=== PATIENT | male | born 1995 | race Caucasian/White ===

== ENCOUNTER 2018-01-08 16:17 | Emergency (ER) | payer BC ==
[~2018-01-08] VITALS: Ht 175.3 cm; Wt 79.0 kg
[2018-01-08 16:20] VITALS: TEMP 36.5; Ht 175.3 cm; Wt 79.0 kg
--- NOTE | 2018-01-08 16:26 | EMERGENCY ROOM VISIT NOTE ---
History Report prepared by Zak: Soham Palacio Under the Supervision of: Dr. Gadiel Smith M.D. First contact with patient: 16:19 Chief Complaint: ALCOHOL OVERDOSE Stated Complaint: ETOH, FALL History of Present Illness The patient is a 22 year old male who presents to the Emergency Room via EMS with a persistent alcohol overdose this afternoon. Per EMS, the patient had been drinking alcohol today, and was found standing on a garage 10 to 12 feet high, and jumped off, sticking the landing onto a table below, but then fell off of that and striking his head. Any loss of consciousness is unknown, but the patient states that he remembers the whole event. The patient denies any pain, including any head, neck, or abdominal pain. He says that he has no notable past medical history. He says that his parents do not know that he is here, but he does not want them called. History limited secondary to patient's intoxication. Source of History: patient, EMS History Limited By: intoxication Onset: This afternoon Position: other (global) Symptom Intensity: jumped off 10 to 12 feet high garage Quality: other (alcohol overdose) Timing: other (persistent) Associated Symptoms: No headache, No neck pain, No abdominal pain Note: LOC is unknown. Review of Systems ROS limited secondary to patient's intoxication. Past Medical & Surgical Medical Problems: (1) No chronic diseases present Family History No pertinent family history Social History Alcohol Use: occasionally Housing Status: lives with roommate Occupation Status: [employer] student Current/Historical Medications No Active Prescriptions or Reported Meds Allergies Coded Allergies: No Known Allergies (Unverified , 01/08/18) Physical Exam Vital Signs Date Time Temp Pulse Resp B/P (MAP) Pulse Ox O2 Delivery O2 Flow Rate FiO2 01/08/18 18:28 62 12 108/61 99 01/08/18 18:03 62 12 108/61 99 Room Air 01/08/18 17:45 59 115/67 98 Room Air 01/08/18 17:26 64 107/74 97 Room Air 01/08/18 17:14 61 112/69 97 Room Air 01/08/18 16:31 69 01/08/18 16:30 96 Room Air 01/08/18 16:20 36.5 98 106/82 97 Room Air Physical Exam GENERAL: Awake, alert, intoxicated-appearing, cervical collar in place HENT: Hematoma to the posterior part of the head. No evidence of laceration. Oropharynx unremarkable. EYES: Normal conjunctiva. Sclera non-icteric. NECK: Supple. No nuchal rigidity. FROM. No JVD. RESPIRATORY: Clear to auscultation. CARDIAC: Regular rate, normal rhythm. Extremities warm and well perfused. Pulses equal. ABDOMEN: Soft, non-distended. No tenderness to palpation. No rebound or guarding. No masses. RECTAL: Deferred. MUSCULOSKELETAL: Chest examination reveals no tenderness. The back is symmetrical on inspection without obvious abnormality. There is no CVA tenderness to palpation. No joint edema. LOWER EXTREMITIES: Calves are equal size bilaterally and non-tender. No edema. No discoloration. NEURO: Normal sensorium. No sensory or motor deficits noted. SKIN: No rash or jaundice noted. Medical Decision & Procedures ER Provider Diagnostic Interpretation: CT results as stated below per my review and radiologist interpretation: HEAD WITHOUT CONTRAST (CT) CLINICAL HISTORY: 22 years-old Male presenting with Pt c/o fall, +LOC. TECHNIQUE: Multidetector CT imaging of the head was performed without the use of intravenous contrast. IV contrast: None. A dose lowering technique was used consistent with the principles of ALARA (as low as reasonably achievable). COMPARISON: None. CT DOSE (mGy.cm): The estimated cumulative dose is 1044.53 mGy.cm. FINDINGS: Automation Test Engineer topogram: Unremarkable. Ventricles and sulci normal in size. Focal lenticular hyperdense collection consistent with acute hemorrhage along the median right frontal lobe with resulting subjacent effacement. The configuration favors epidural hematoma, which measures 7 mm in thickness. There may be minimal acute hemorrhage along the anterior falx ingesting a trace subdural component. The underlying brain parenchyma in the right frontal lobe does not demonstrate convincing evidence for contusion. However, subarachnoid hemorrhage is noted in the right frontal region both immediately subjacent to the presumed epidural hematoma as well as laterally and inferiorly in the right frontal region. No midline shift. Acute nondisplaced fracture of the frontal bone, which does not traverse posterior to the coronal suture but may result in slight diastases of the anterior most portion of the sagittal suture. The fracture plane extends anteriorly violating the superior right orbital rim and right anterior cranial fossa. Extensive aerated secretions in the maxillary sinuses. The right orbit appears spared. Small subgaleal hematoma also noted over the skull fracture. IMPRESSION: 1. Nondisplaced frontal bone fracture with extension into the anterior cranial fossa. 2. Associated small epidural hematoma and subarachnoid hemorrhage in the right frontal region. Possible trace subdural hematoma along the anterior falx. 3. No convincing evidence for a subjacent brain contusion. 4. Small subgaleal hematoma. 5. Partial opacification of the maxillary sinuses likely due to blood products. These findings were discussed with Dr. Smith by Dr. William on 01/08/2018 4:54 PM. Electronically signed by: Andrea William M.D. 01/08/2018 4:56 PM Dictated Date/Time: 01/08/2018 4:47 PM CERVICAL SPINE W/O CLINICAL HISTORY: 22 years-old Male presenting with Pt c/o Fall, +LOC. TECHNIQUE: Multidetector CT of the cervical spine was performed without the use of intravenous contrast. IV contrast: None. A dose lowering technique was used consistent with the principles of ALARA (as low as reasonably achievable). COMPARISON: None. CT DOSE (mGy.cm): The estimated cumulative dose is 1044.[address] head. FINDINGS: Automation Test Engineer topogram: Unremarkable. Normal cervical lordosis. Vertebral bodies maintain normal height and alignment. Intervertebral discs heights preserved. No acute fracture or subluxation. No osseous spinal canal or neural foraminal narrowing. Unfused secondary ossification center noted at the dorsal aspect of the spinous process of C7. Partial opacification of maxillary sinuses. Lung apices clear. Paraspinal soft tissues within normal limits allowing for noncontrast technique. IMPRESSION: No acute osseous injury of the cervical spine. Electronically signed by: Andrea William M.D. 01/08/2018 4:58 PM Dictated Date/Time: 01/08/2018 4:57 PM THORACIC SPINE WITHOUT CLINICAL HISTORY: 22 years-old Male presenting with Pt ten foot fall. TECHNIQUE: Multidetector CT of the thoracic spine was performed without the use of intravenous contrast. IV contrast: None. A dose lowering technique was used consistent with the principles of ALARA (as low as reasonably achievable). COMPARISON: None. CT DOSE (mGy.cm): The estimated cumulative dose is 578.41. FINDINGS: Automation Test Engineer topogram: Unremarkable. Normal thoracic kyphosis. No acute fracture or subluxation. Vertebral bodies maintain normal height and alignment. Intervertebral disc spaces maintained. No osseous neural foraminal or spinal canal narrowing. IMPRESSION: No acute osseous injury of the thoracic spine. Electronically signed by: Andrea William M.D. 01/08/2018 5:15 PM Dictated Date/Time: 01/08/2018 5:13 PM CLINICAL HISTORY: 22 years-old Male presenting with Pt c/o 10 foot fall. TECHNIQUE: Multidetector CT of the lumbar spine was performed without the use of intravenous contrast. IV contrast: None. A dose lowering technique was used consistent with the principles of ALARA (as low as reasonably achievable). COMPARISON: None. CT DOSE (mGy.cm): The estimated cumulative dose is 578.41. FINDINGS: Automation Test Engineer topogram: Unremarkable. Normal lumbar lordosis. Vertebral bodies maintain normal height and alignment. Intervertebral discs maintained. No acute fracture or subluxation. No osseous neural foraminal or spinal canal narrowing. IMPRESSION: No acute osseous injury lumbar spine. Electronically signed by: Andrea William M.D. 01/08/2018 5:17 PM Dictated Date/Time: 01/08/2018 5:[address] (CHEST) THORAX WITH CLINICAL HISTORY: 22 years-old Male presenting with Pt c/o head trauma. TECHNIQUE: Multidetector CT imaging of the chest was performed after the administration of intravenous contrast. IV contrast: 116 mL of Optiray 320. A dose lowering technique was used consistent with the principles of ALARA (as low as reasonably achievable). COMPARISON: None. CT DOSE (mGy.cm): The estimated cumulative dose is 578.41. FINDINGS: Automation Test Engineer topogram: Unremarkable. On soft tissue windows, normal thyroid and thoracic inlet. No axillary, supraclavicular, hilar, or mediastinal lymphadenopathy. Normal aorta. Normal heart size. No pericardial or pleural effusion. Upper abdomen normal. On lung windows, minimal dependent changes likely atelectasis. No other focal nodule or infiltrate. Airways patent. On bone windows, normal osseous structures. IMPRESSION: 1. No acute intrathoracic injury. Electronically signed by: Andrea William M.D. 01/08/2018 5:13 PM Dictated Date/Time: 01/08/2018 5:09 PM ABD/PELVIS IV CONTRAST ONLY CLINICAL HISTORY: 22 years-old Male presenting with Pt c/o abd pain, trauma. TECHNIQUE: Multidetector CT of the abdomen and pelvis was performed after the administration of intravenous contrast. IV contrast: 116 mL of Optiray 320. A dose lowering technique was used consistent with the principles of ALARA (as low as reasonably achievable). COMPARISON: None. CT DOSE (mGy.cm): The estimated cumulative dose is 578.41 mGy.cm. FINDINGS: Automation Test Engineer topogram: Unremarkable. Lung bases: Minimal basilar opacities, likely atelectasis. Normal heart size. No pericardial or pleural effusion. Liver: Normal morphology. No liver lesion. Patent hepatic vasculature. Biliary: No intrahepatic or extrahepatic biliary ductal dilatation. Normal gallbladder. Pancreas: Normal. Spleen: Normal. Adrenal glands: Normal. Kidneys and ureters: Normal. No hydronephrosis. Bladder: Normal. Pelvic organs: Prostate and seminal vesicles normal. Bowel: Normal. No bowel obstruction. Peritoneal cavity: No free fluid or intraperitoneal gas. Lymph nodes: No enlarged lymph nodes in the abdomen or pelvis. Vasculature: Aorta and IVC patent and normal in caliber. Abdominal wall: Normal. Musculoskeletal: Normal. IMPRESSION: 1. No acute intra-abdominal injury. Electronically signed by: Andrea William M.D. 01/08/2018 5:09 PM Dictated Date/Time: 01/08/2018 5:03 PM Laboratory Results 01/08/18 16:36 Red Blood Count 4.68, Mean Corpuscular Volume 85.3, Mean Corpuscular Hemoglobin 30.1, Mean Corpuscular Hemoglobin Concent 35.3, Mean Platelet Volume 9.0, Neutrophils (%) (Auto) 55.8, Lymphocytes (%) (Auto) 35.2, Monocytes (%) (Auto) 7.8, Eosinophils (%) (Auto) 0.3, Basophils (%) (Auto) 0.6, Neutrophils # (Auto) 3.45, Lymphocytes # (Auto) 2.18, Monocytes # (Auto) 0.48, Eosinophils # (Auto) 0.02, Basophils # (Auto) 0.04 01/08/18 16:36 Test 01/08/18 16:36 White Blood Count 6.19 K/uL (4.8-10.8) Red Blood Count 4.68 M/uL (4.7-6.1) Hemoglobin 14.1 g/dL (14.0-18.0) Hematocrit 39.9 % (42-52) Mean Corpuscular Volume 85.3 fL (80-100) Mean Corpuscular Hemoglobin 30.1 pg (25-34) Mean Corpuscular Hemoglobin Concent 35.3 g/dl (32-36) Platelet Count 232 K/uL (130-400) Mean Platelet Volume 9.0 fL (7.4-10.4) Neutrophils (%) (Auto) 55.8 % Lymphocytes (%) (Auto) 35.2 % Monocytes (%) (Auto) 7.8 % Eosinophils (%) (Auto) 0.3 % Basophils (%) (Auto) 0.6 % Neutrophils # (Auto) 3.45 K/uL (1.4-6.5) Lymphocytes # (Auto) 2.18 K/uL (1.2-3.4) Monocytes # (Auto) 0.48 K/uL (0.11-0.59) Eosinophils # (Auto) 0.02 K/uL (0-0.5) Basophils # (Auto) 0.04 K/uL (0-0.2) RDW Standard Deviation 38.1 fL (36.4-46.3) RDW Coefficient of Variation 12.4 % (11.5-14.5) Immature Granulocyte % (Auto) 0.3 % Immature Granulocyte # (Auto) 0.02 K/uL (0.00-0.02) Anion Gap 11.0 mmol/L (3-11) Est Creatinine Clear Calc Drug Dose 111.3 ml/min Estimated GFR () 117.0 Estimated GFR (Non- 101.0 BUN/Creatinine Ratio 11.0 (10-20) Calcium Level 8.3 mg/dl (8.5-10.1) Total Bilirubin 0.3 mg/dl (0.2-1) Direct Bilirubin < 0.1 mg/dl (0-0.2) Aspartate Amino Transf (AST/SGOT) 28 U/L (15-37) Alanine Aminotransferase (ALT/SGPT) 25 U/L (12-78) Alkaline Phosphatase 50 U/L (45-117) Total Protein 7.0 gm/dl (6.4-8.2) Albumin 3.9 gm/dl (3.4-5.0) Ethyl Alcohol mg/dL 300.2 mg/dl (0-3) Labs reviewed by ED physician. Medications Administered Medications (Trade) Dose Ordered Sig/Jose Route Start Time Stop Time Status Last Admin Dose Admin Sodium Chloride 1,000 ml @ 999 mls/hr Q1H1M STAT IV 01/08/18 17:24 418 18:24 DC 01/08/18 17:24 999 MLS/HR Ondansetron HCl (Zofran Inj) 4 mg NOW STAT IV 01/08/18 17:24 01/08/18 17:25 DC 01/08/18 17:24 4 MG ED Course 1621: Past medical records reviewed. The patient was evaluated in room A12B. A limited history and physical examination was performed. 1708: I talked to both of the patient's parents (Hanny: [phone], Teddy: [phone]), and they asked that the patient be flown to [place] which I explained that we cannot do as we need to bring him to the closest trauma facility. 1710: I reevaluated the patient and he is resting. I discussed the test results with him and his friends. I explained that he needed to be transferred to another facility for treatment, and he is agreeable with the plan. 1715: I discussed the patient with Dr. Sharp - [facility] - we discussed taking the patient to [facility] since it is closer to the [place] airport but due to [facility] being unable to fly, we will be unable to and I relayed this to the patient's parents. Dr. Sharp will accept the patient in transfer. 1724: Zofran Inj 4 mg IV, NSS 1000 ml @ 999 mls/hr IV. Medical Decision Differential diagnosis: Etiologies such as alcohol intoxication, toxicologic, infection, hypoglycemia, electrolyte abnormalities, cardiac sources, intracerebral event, fracture, dislocation, intra-abdominal, pneumothorax, intrathoracic , intracranial, neurologic as well as others were entertained. This is a 22-year-old male who presents the emergency department complaining of jumping off a roof of a building and being knocked unconscious when he hit his head on the ground. The patient initially did not want me to call his parents. Due to the nature of the patient's fall he was immediately sent for a CAT scan of the head after an IV was established and laboratory work was obtained. While in CAT scan the patient was noted to have a head bleed and at this point the decision was made by myself to scan the patient's spine as well as his chest abdomen and pelvis. In the meanwhile I implored his friends to get a hold of the patient's parents. The patient at this point then relented and allowed me to talk with his parents. Pt's SAM noted to be .300. I then discussed the patient's injuries with his mother and sister. I also discussed the patient's injuries with his father. I strongly recommended to all parties involved that the patient be transferred to the nearest trauma center and noted that this was [place] of [facility] and closer to [place]. Parents asked that the patient be transferred to [place] however there is no physical way that this can be done in a timely manner. The patient was started on a normal saline bolus along with Zofran. Both he and his parents consented to the trip to [place]. I discussed the possibility of transferring the patient to [place] as there is an airport there, however [facility] does not feel this would be to the benefit of the patient as there is also not a [facility] craft available for the transport to [place]. I discussed the patient's status with Dr. Sharp in [place] who readily accepted the patient. There is a delay in transfer due to [facility] not being available in [place]. The patient was then transferred to [place]. Medication Reconcilliation Current Medication List: was personally reviewed by me Blood Pressure Screening Patient's blood pressure: Normal blood pressure Consults Time Called: 1710 Consulting Physician: Dr. Aron [facility] Returned Call: 1712 I discussed the patient with Dr. A[facility] [place] [facility] - we discussed taking the patient to [facility] since it is closer to the [place] airport but due to [employer] being unable to fly, we will be unable to and I relayed this to the patient's parents. Dr. Sharp will accept the patient in transfer. Impression Primary Impression: Fall Additional Impressions: Alcohol intoxication Skull fracture Subdural hematoma Epidural hematoma Subarachnoid hemorrhage Critical Care I have personally spent greater than 90 minutes of critical care time in the direct management of this patient. This includes bedside care, interpretation of diagnostic studies, and testing, discussion with consultants, patient, and family members, and other required patient management activities. This 90 minutes is in excess of all separately billable procedures. Scribe Attestation The scribe's documentation has been prepared under my direction and personally reviewed by me in its entirety. I confirm that the note above accurately reflects all work, treatment, procedures, and medical decision making performed by me. Departure Information Dispostion Transfer Acute Care Facility (to [facility] ED) Prescriptions No Active Prescriptions or Reported Meds Patient Instructions My [facility] Health Problem Qualifiers Primary Impression: Fall Encounter type: initial encounter Qualified Codes: W19.XXXA - Unspecified fall, initial encounter Additional Impressions: Alcohol intoxication Complication of substance-induced condition: uncomplicated Qualified Codes: F10.920 - Alcohol use, unspecified with intoxication, uncomplicated Skull fracture Encounter type: initial encounter Skull bone/location: unspecified skull bone Fracture type: closed Qualified Codes: S02.91XA - Unspecified fracture of skull, initial encounter for closed fracture
[2018-01-08 16:30] VITALS: O2SAT 96
[2018-01-08 16:49] LABS: BASO % 0.6 %; BASO ABS # 0.04 K/uL (0-0.2); EOS % 0.3 %; EOS ABS # 0.02 K/uL (0-0.5); HEMATOCRIT 39.9 % (42-52); HEMOGLOBIN 14.1 g/dL (14.0-18.0); IG# 0.02 K/uL (0.00-0.02); LYMPH % 35.2 %; LYMPH ABS # 2.18 K/uL (1.2-3.4); MEAN CELL VOLUME 85.3 fL (80-100); MEAN CORPUSCULAR HEMOGLOBIN 30.1 pg (25-34); MEAN CORPUSCULAR HGB CONC 35.3 g/dl (32-36); MONO % 7.8 %; MONO ABS # 0.48 K/uL (0.11-0.59); NEUT % 55.8 %; NEUT ABS # 3.45 K/uL (1.4-6.5); PLATELET COUNT 232 K/uL (130-400); RED CELL DISTRIBUTION WIDTH CV 12.4 % (11.5-14.5); RED CELL DISTRIBUTION WIDTH SD 38.1 fL (36.4-46.3); WHITE BLOOD COUNT 6.19 K/uL (4.8-10.8)
--- NOTE | 2018-01-08 16:58 | DIAGNOSTIC IMAGING REPORT ---
HEAD WITHOUT CONTRAST (CT) CLINICAL HISTORY: 22 years-old Male presenting with Pt c/o fall, +LOC. TECHNIQUE: Multidetector CT imaging of the head was performed without the use of intravenous contrast. IV contrast: None. A dose lowering technique was used consistent with the principles of ALARA (as low as reasonably achievable). COMPARISON: None. CT DOSE (mGy.cm): The estimated cumulative dose is 1044.53 mGy.cm. FINDINGS: Outsole Tacker topogram: Unremarkable. Ventricles and sulci normal in size. Focal lenticular hyperdense collection consistent with acute hemorrhage along the median right frontal lobe with resulting subjacent effacement. The configuration favors epidural hematoma, which measures 7 mm in thickness. There may be minimal acute hemorrhage along the anterior falx ingesting a trace subdural component. The underlying brain parenchyma in the right frontal lobe does not demonstrate convincing evidence for contusion. However, subarachnoid hemorrhage is noted in the right frontal region both immediately subjacent to the presumed epidural hematoma as well as laterally and inferiorly in the right frontal region. No midline shift. Acute nondisplaced fracture of the frontal bone, which does not traverse posterior to the coronal suture but may result in slight diastases of the anterior most portion of the sagittal suture. The fracture plane extends anteriorly violating the superior right orbital rim and right anterior cranial fossa. Extensive aerated secretions in the maxillary sinuses. The right orbit appears spared. Small subgaleal hematoma also noted over the skull fracture. IMPRESSION: 1. Nondisplaced frontal bone fracture with extension into the anterior cranial fossa. 2. Associated small epidural hematoma and subarachnoid hemorrhage in the right frontal region. Possible trace subdural hematoma along the anterior falx. 3. No convincing evidence for a subjacent brain contusion. 4. Small subgaleal hematoma. 5. Partial opacification of the maxillary sinuses likely due to blood products. These findings were discussed with Dr. Smith by Dr. William on 01/08/2018 4:54 PM. Electronically signed by: Andrea William M.D. 01/08/2018 4:56 PM Dictated Date/Time: 01/08/2018 4:47 PM
--- NOTE | 2018-01-08 17:00 | DIAGNOSTIC IMAGING REPORT ---
CERVICAL SPINE W/O CLINICAL HISTORY: 22 years-old Male presenting with Pt c/o Fall, +LOC. TECHNIQUE: Multidetector CT of the cervical spine was performed without the use of intravenous contrast. IV contrast: None. A dose lowering technique was used consistent with the principles of ALARA (as low as reasonably achievable). COMPARISON: None. CT DOSE (mGy.cm): The estimated cumulative dose is 1044.[address] head. FINDINGS: Inspector Radar And Electronics topogram: Unremarkable. Normal cervical lordosis. Vertebral bodies maintain normal height and alignment. Intervertebral discs heights preserved. No acute fracture or subluxation. No osseous spinal canal or neural foraminal narrowing. Unfused secondary ossification center noted at the dorsal aspect of the spinous process of C7. Partial opacification of maxillary sinuses. Lung apices clear. Paraspinal soft tissues within normal limits allowing for noncontrast technique. IMPRESSION: No acute osseous injury of the cervical spine. Electronically signed by: Andrea William M.D. 01/08/2018 4:58 PM Dictated Date/Time: 01/08/2018 4:57 PM
[2018-01-08 17:05] LABS: ALBUMIN 3.9 gm/dl (3.4-5.0); ALT/SGPT 25 U/L (12-78); BLOOD UREA NITROGEN 12 mg/dl (7-18); CALCIUM 8.3 mg/dl (8.5-10.1); CARBON DIOXIDE 23 mmol/L (21-32); CREATININE 1.05 mg/dl (0.60-1.40); GLUCOSE 94 mg/dl (70-99); POTASSIUM 3.4 mmol/L (3.5-5.1); SODIUM 138 mmol/L (136-145)
[2018-01-08 17:08] LABS: ALKALINE PHOSPHATASE 50 U/L (45-117); AST/SGOT 28 U/L (15-37)
--- NOTE | 2018-01-08 17:11 | DIAGNOSTIC IMAGING REPORT ---
ABD/PELVIS IV CONTRAST ONLY CLINICAL HISTORY: 22 years-old Male presenting with Pt c/o abd pain, trauma. TECHNIQUE: Multidetector CT of the abdomen and pelvis was performed after the administration of intravenous contrast. IV contrast: 116 mL of Optiray 320. A dose lowering technique was used consistent with the principles of ALARA (as low as reasonably achievable). COMPARISON: None. CT DOSE (mGy.cm): The estimated cumulative dose is 578.41 mGy.cm. FINDINGS: Yoga Teacher topogram: Unremarkable. Lung bases: Minimal basilar opacities, likely atelectasis. Normal heart size. No pericardial or pleural effusion. Liver: Normal morphology. No liver lesion. Patent hepatic vasculature. Biliary: No intrahepatic or extrahepatic biliary ductal dilatation. Normal gallbladder. Pancreas: Normal. Spleen: Normal. Adrenal glands: Normal. Kidneys and ureters: Normal. No hydronephrosis. Bladder: Normal. Pelvic organs: Prostate and seminal vesicles normal. Bowel: Normal. No bowel obstruction. Peritoneal cavity: No free fluid or intraperitoneal gas. Lymph nodes: No enlarged lymph nodes in the abdomen or pelvis. Vasculature: Aorta and IVC patent and normal in caliber. Abdominal wall: Normal. Musculoskeletal: Normal. IMPRESSION: 1. No acute intra-abdominal injury. Electronically signed by: Andrea William M.D. 01/08/2018 5:09 PM Dictated Date/Time: 01/08/2018 5:03 PM
--- NOTE | 2018-01-08 17:14 | DIAGNOSTIC IMAGING REPORT ---
CT (CHEST) THORAX WITH CLINICAL HISTORY: 22 years-old Male presenting with Pt c/o head trauma. TECHNIQUE: Multidetector CT imaging of the chest was performed after the administration of intravenous contrast. IV contrast: 116 mL of Optiray 320. A dose lowering technique was used consistent with the principles of ALARA (as low as reasonably achievable). COMPARISON: None. CT DOSE (mGy.cm): The estimated cumulative dose is 578.41. FINDINGS: Enterprise Resource Analyst topogram: Unremarkable. On soft tissue windows, normal thyroid and thoracic inlet. No axillary, supraclavicular, hilar, or mediastinal lymphadenopathy. Normal aorta. Normal heart size. No pericardial or pleural effusion. Upper abdomen normal. On lung windows, minimal dependent changes likely atelectasis. No other focal nodule or infiltrate. Airways patent. On bone windows, normal osseous structures. IMPRESSION: 1. No acute intrathoracic injury. Electronically signed by: Andrea William M.D. 01/08/2018 5:13 PM Dictated Date/Time: 01/08/2018 5:09 PM
--- NOTE | 2018-01-08 17:16 | DIAGNOSTIC IMAGING REPORT ---
THORACIC SPINE WITHOUT CLINICAL HISTORY: 22 years-old Male presenting with Pt ten foot fall. TECHNIQUE: Multidetector CT of the thoracic spine was performed without the use of intravenous contrast. IV contrast: None. A dose lowering technique was used consistent with the principles of ALARA (as low as reasonably achievable). COMPARISON: None. CT DOSE (mGy.cm): The estimated cumulative dose is 578.41. FINDINGS: Cue Selector topogram: Unremarkable. Normal thoracic kyphosis. No acute fracture or subluxation. Vertebral bodies maintain normal height and alignment. Intervertebral disc spaces maintained. No osseous neural foraminal or spinal canal narrowing. IMPRESSION: No acute osseous injury of the thoracic spine. Electronically signed by: Andrea William M.D. 01/08/2018 5:15 PM Dictated Date/Time: 01/08/2018 5:13 PM
--- NOTE | 2018-01-08 17:18 | DIAGNOSTIC IMAGING REPORT ---
LUMBAR SPINE WITHOUT CLINICAL HISTORY: 22 years-old Male presenting with Pt c/o 10 foot fall. TECHNIQUE: Multidetector CT of the lumbar spine was performed without the use of intravenous contrast. IV contrast: None. A dose lowering technique was used consistent with the principles of ALARA (as low as reasonably achievable). COMPARISON: None. CT DOSE (mGy.cm): The estimated cumulative dose is 578.41. FINDINGS: Estimate Clerk topogram: Unremarkable. Normal lumbar lordosis. Vertebral bodies maintain normal height and alignment. Intervertebral discs maintained. No acute fracture or subluxation. No osseous neural foraminal or spinal canal narrowing. IMPRESSION: No acute osseous injury lumbar spine. Electronically signed by: Andrea William M.D. 01/08/2018 5:17 PM Dictated Date/Time: 01/08/2018 5:15 PM
[2018-01-08] MEDS ORDERED: ONDANSETRON INJ 2 MG/ML 2 ML VIAL IV STA (17:24)
[2018-01-08] MEDS ORDERED: SODIUM CHLORIDE 0.9% 1000ML 1,000 ML IV STA (17:24)
[2018-01-08] MEDS ORDERED: ONDANSETRON INJ 2 MG/ML 2 ML VIAL ONE (17:26)
[2018-01-08] MEDS ORDERED: OPTIRAY 320 IV PRN (17:30)
[2018-01-08 18:28] VITALS: BP 108/61; PULSE 62; O2SAT 99
== END 2018-01-08 18:10 | disposition short-term general hospital (02) ==
LOC: EDBD 16:17 → C.EDA 16:18
DX: S02.0XXA Fracture of vault of skull, initial encounter for closed fracture (principal); S06.4X0A Epidural hemorrhage without loss of consciousness, initial encounter; S06.6X0A Traumatic subarachnoid hemorrhage without loss of consciousness, initial encounter; F10.129 Alcohol abuse with intoxication, unspecified; W17.89XA Other fall from one level to another, initial encounter